=== PATIENT | female | born 1990 | race Caucasian/White ===

== ENCOUNTER 2023-05-03 20:12 | Observation (INO) | payer OTHER, SELFPAY ==
[2023-05-03 21:23] LABS: #Basophils 0.1 10x3/uL (0.0-0.2); #Eosinphils 0.3 10x3/uL (0.0-0.5); #Monocytes 0.8 10x3/uL (0.0-1.1); #Neutrophils 6.6 10x3/uL (1.5-8.4); %Basophils 0.4 % (0.0-2.0); %Eosinophils 2.7 % (0.0-6.0); %Lymphocytes 35.5 % (18.0-47.0); %Monocytes 6.7 % (0.0-10.0); %Neutrophils 54.5 % (40.0-75.0); Hemoglobin 11.6 g/dL (12.0-15.5); Mean Corpuscular HGB CONC 32.2 g/dL (32.0-36.0); Mean Corpuscular Hemoglobin 25.2 pg (27.0-33.0); Mean Corpuscular Volume 78.1 fl (81.6-98.3); Mean Platelet Volume 9.6 fl (7.4-10.4); Platelet Count 297 10x3/uL (150-450); RBC Distribution Width 14.2 % (11.5-14.5); Red Blood Cell (RBC) Count 4.61 10x6/uL (3.90-5.03); White Blood Cell (WBC) Count 12.1 10x3/uL (3.5-10.5)
[2023-05-03 21:31] LABS: ALT (SGPT) 7 U/L (8-55); AST (SGOT) 13 U/L (5-34); Alkaline Phosphatase 60 U/L (40-110); Anion Gap 13 mmol/L (10-20); BUN (Urea Nitrogen) 9 mg/dL (7.0-18.7); Bilirubin, Total 0.4 mg/dL (0.2-1.2); Calc. Creatinine Clearance 0 mL/min (70-130); Calcium 8.9 mg/dL (7.8-10.44); Carbon Dioxide 23 mmol/L (22-29); Chloride 106 mmol/L (98-107); Estimated GFR 103; Globulin 2.9 g/dL (2.4-3.5); Glucose 96 mg/dL (70-105); Potassium 4.2 mmol/L (3.5-5.1); Protein, Total 6.9 g/dL (6.0-8.3); Sodium 138 mmol/L (136-145)
[2023-05-03] MEDS ORDERED: Lactated Ringer's 1,000 ML IV SCH (22:30)
[2023-05-03] MEDS ORDERED: fentaNYL 50 mcg/mL 1 mL Vial ONE (23:05)
[2023-05-03] MEDS ORDERED: PROPOFOL 20 ML ONE (23:11)
[2023-05-03] MEDS ORDERED: Succinylcholine 200 MG/10 ml SYRINGE FS ONE (23:12)
[2023-05-03] MEDS ORDERED: Lidocaine 1% PF 5 ML VIAL ONE (23:12)
[2023-05-03] MEDS ORDERED: Dexamethasone 20 MG/5 ML VIAL ONE (23:14)
[2023-05-03] MEDS ORDERED: Ondansetron PF 4 MG/2 ML Vial ONE (23:14)
[2023-05-03] MEDS ORDERED: Midazolam HCl 2 mg/2 ml Vial ONE (23:15)
[2023-05-03] MEDS ORDERED: CEFAZOLIN 1 GM VIAL ONE (23:26)
[2023-05-03] MEDS ORDERED: Metoclopramide HCl 10 MG/2 ML VIAL ONE (23:30)
[2023-05-03] MEDS ORDERED: diphenhydrAMINE 50 MG/ML VIAL ONE (23:30)
[2023-05-03] MEDS ORDERED: Misoprostol 200 MCG TAB ONE (23:34)
[2023-05-03] MEDS ORDERED: Methylergonovine 0.2 MG/ML VIAL ONE (23:34)
[2023-05-03] MEDS ORDERED: Carboprost 250 MCG/ML AMP ONE (23:48)
[2023-05-04] MEDS ORDERED: Ondansetron PF 4 MG/2 ML Vial IVP PRN (00:12)
[2023-05-04] MEDS ORDERED: Ibuprofen 600 MG TAB PO PRN (00:13)
[2023-05-04] MEDS ORDERED: Morphine 2 MG/ML VIAL SLOW IVP PRN (02:40)
[2023-05-04] MEDS ORDERED: Ventolin HFA Inhaler 60 PUFF INHALER INH PRN (02:44)
[2023-05-04 03:18] VITALS: BMI 25.9
[2023-05-04 04:18] LABS: Hematocrit 32.1 % (34.9-44.5); Hemoglobin 10.6 g/dL (12.0-15.5)
[2023-05-04 05:04] VITALS: BP 92/51; TEMP 98.2
[2023-05-04] MEDS ORDERED: HYDROcodone/Acetaminophen 5/325 mg Tablet PO PRN (06:06)
[2023-05-04 08:46] LABS: Hematocrit 30.2 % (34.9-44.5); Hemoglobin 9.8 g/dL (12.0-15.5)
== END 2023-05-04 12:30 | disposition home or self-care (01) ==
LOC: CSHERS 20:12 → CSHANTE 05-04 00:49
PROVIDERS: ADMIT Obstetrics & Gynecology; ATTEND Obstetrics & Gynecology
PROC: 10D17ZZ Extraction of Products of Conception, Retained, Via Natural or Artificial Opening (ICD-10-PCS; principal; 2023-05-04)
DX: O03.4 Incomplete spontaneous abortion without complication (principal); O73.1 Retained portions of placenta and membranes, without hemorrhage; O99.511 Diseases of the respiratory system complicating pregnancy, first trimester; J45.909 Unspecified asthma, uncomplicated; O99.341 Other mental disorders complicating pregnancy, first trimester; F41.9 Anxiety disorder, unspecified; O99.011 Anemia complicating pregnancy, first trimester; D64.9 Anemia, unspecified; Z3A.12 12 weeks gestation of pregnancy
CPT/HCPCS: 36415; 76801; 80053; 85014; 85018; 85025; 86850; 86900; 86901; 88305; G0378; J0690; J1100; J1200; J2210; J2250; J2405; J2704; J2765; J3010; J3490

== ENCOUNTER 2023-08-04 15:23 | Emergency (ER) | payer OTHER ==
[2023-08-04 16:39] LABS: #Basophils 0.1 10x3/uL (0.0-0.2); #Eosinphils 0.2 10x3/uL (0.0-0.5); #Monocytes 0.5 10x3/uL (0.0-1.1); #Neutrophils 4.1 10x3/uL (1.5-8.4); %Basophils 0.7 % (0.0-2.0); %Lymphocytes 36.2 % (18.0-47.0); %Monocytes 6.1 % (0.0-10.0); %Neutrophils 54.7 % (40.0-75.0); ALT (SGPT) 12 U/L (8-55); AST (SGOT) 15 U/L (5-34); Albumin 4.3 g/dL (3.5-5.0); Alkaline Phosphatase 56 U/L (40-110); Anion Gap 13 mmol/L (10-20); BUN (Urea Nitrogen) 9 mg/dL (7.0-18.7); Bilirubin, Total 0.4 mg/dL (0.2-1.2); Calc. Creatinine Clearance 0 mL/min (70-130); Calcium 9.1 mg/dL (7.8-10.44); Carbon Dioxide 23 mmol/L (22-29); Chloride 108 mmol/L (98-107); Estimated GFR 106; Globulin 2.9 g/dL (2.4-3.5); Glucose 102 mg/dL (70-105); Hematocrit 31.4 % (34.9-44.5); Hemoglobin 9.8 g/dL (12.0-15.5); Mean Corpuscular HGB CONC 31.2 g/dL (32.0-36.0); Mean Corpuscular Hemoglobin 22.7 pg (27.0-33.0); Mean Corpuscular Volume 72.7 fl (81.6-98.3); Mean Platelet Volume 10.3 fl (7.4-10.4); Platelet Count 295 10x3/uL (150-450); Potassium 4.4 mmol/L (3.5-5.1); Protein, Total 7.2 g/dL (6.0-8.3); Red Blood Cell (RBC) Count 4.32 10x6/uL (3.90-5.03); Sodium 140 mmol/L (136-145); White Blood Cell (WBC) Count 7.4 10x3/uL (3.5-10.5)
[2023-08-04 16:40] LABS: Bilirubin Neg (Negative); Blood, Urine 250 (Negative); Clarity Clear (Clear); Glucose, Urine (Dipstick) Normal (Negative); Ketone, Urine Negative (Negative); Leukocyte Negative (Negative); Nitrite Negative (Negative); Protein, Urine (Dipstick) Negative (Neg-Trace); Urobilinogen Normal mg/dL (Less than 2)
[2023-08-04 16:52] LABS: CAUTI Indications for Culture Pelvic or flank pain; Squamous Epithelial 0-3 HPF (0-3); WBC/HPF 0-3 HPF (0-3)
[2023-08-04 16:53] LABS: Bacteria/HPF 2+ HPF (None Seen)
[2023-08-04 16:54] LABS: Urine Culture Reflex No No
== END 2023-08-04 17:42 | disposition home or self-care (01) ==
LOC: CSHERS 15:23
DX: O20.0 Threatened abortion (principal); O99.511 Diseases of the respiratory system complicating pregnancy, first trimester; J45.909 Unspecified asthma, uncomplicated; Z3A.01 Less than 8 weeks gestation of pregnancy
CPT/HCPCS: 36415; 76856; 80053; 81001; 84702; 85025

== ENCOUNTER 2023-10-27 19:33 | Emergency (ER) | payer OTHER, SELFPAY ==
[2023-10-27] MEDS ORDERED: Ketorolac Tromethamine 30 MG (1 mL) VIAL ONE (20:11)
[2023-10-27] MEDS ORDERED: traMADol HCl 50 MG TAB ONE (21:11)
== END 2023-10-27 21:27 | disposition home or self-care (01) ==
LOC: CSHERS 19:33
DX: S92.111A Displaced fracture of neck of right talus, initial encounter for closed fracture (principal); J45.909 Unspecified asthma, uncomplicated; Z79.899 Other long term (current) drug therapy; Z55.6 Problems related to health literacy; Z75.3 Unavailability and inaccessibility of health-care facilities; V27.49XA Other motorcycle driver injured in collision with fixed or stationary object in traffic accident, initial encounter
CPT/HCPCS: 96372; J1885